=== PATIENT | male | born 1980 | race Caucasian/White ===

== ENCOUNTER 2023-11-27 11:34 | Inpatient (IN) | payer OTHER, BC ==
[2023-11-27 13:24] VITALS: BMI 26.2
[2023-11-27] MEDS ORDERED: MAGNESIUM HYDROX 2400MG/30ML ORAL SUSPENSION 30 ML CUP PO PRN (14:44)
[2023-11-27] MEDS ORDERED: IBUPROFEN 600 MG TABLET (FP) PO PRN (14:44)
[2023-11-27] MEDS ORDERED: LORazepam 1 MG TABLET PO PRN (14:44)
[2023-11-27] MEDS ORDERED: BISMUTH SUBSALICYLATE 524 MG/30 ML PO PRN (14:44)
[2023-11-27] MEDS ORDERED: IBUPROFEN 400 MG TABLET (FP) PO PRN (14:44)
[2023-11-27] MEDS ORDERED: LOPERAMIDE HCL 2 MG CAPSULE PO PRN (14:44)
[2023-11-27] MEDS ORDERED: DICYCLOMINE HCL 10 MG CAPSULE PO PRN (14:44)
[2023-11-27] MEDS ORDERED: BENZONATATE 200 MG CAPSULE PO PRN (14:44)
[2023-11-27] MEDS ORDERED: ACETAMINOPHEN 325 MG TABLET (FP) PO PRN (14:44)
[2023-11-27] MEDS ORDERED: POLYETHYLENE GLYCOL (HEALTHYLAX) 3350 17 GM PACKET PO PRN (14:44)
[2023-11-27] MEDS ORDERED: MAG HYDROX/AL HYDROX/SIMETH 30 ML UNIT-DOSE CUP PO PRN (14:44)
[2023-11-27] MEDS ORDERED: guaiFENesin 600 MG TABLET.ER (FP) PO PRN (14:44)
[2023-11-27] MEDS ORDERED: ONDANSETRON *ODT* 4 MG TABLET SL PRN (14:44)
[2023-11-27] MEDS ORDERED: BENZOCAINE/MENTHOL (CHLORASEPTIC ) LOZENGE MM PRN (14:44)
[2023-11-27] MEDS ORDERED: NALOXONE HCL 0.4 MG/ML VIAL IM PRN (14:44)
[2023-11-27] MEDS ORDERED: NALOXONE HCL (KLOXXADO) 8 MG SPRAY NS PRN (14:44)
[2023-11-27] MEDS: LISINOPRIL 20 MG TABLET PO SCH (16:35)
[2023-11-27] MEDS: PRENATAL VITAMINS W/ FOLIC ACID TABLET (FP) PO SCH (16:35)
[2023-11-27] MEDS: LORazepam 2 MG TABLET PO SCH (17:11)
[2023-11-27] MEDS: CHLORTHALIDONE 25 MG TABLET PO SCH ×2 (18:30→20:01)
[2023-11-27] MEDS ORDERED: SUVOREXANT 5 MG TABLET PO PRN (20:00)
[2023-11-27] MEDS: THIAMINE HCL 100 MG TABLET (FP) PO SCH (22:48)
[2023-11-27] MEDS: MELATONIN 5 MG TABLETS PO SCH (22:48)
[2023-11-27] MEDS: METHOCARBAMOL 500 MG TABLET PO PRN (22:48)
[2023-11-28] MEDS: DULoxetine HCL 30 MG CAPSULE.DR PO SCH (10:15)
[2023-11-28 12:01] LABS: HEMATOCRIT 46.8 % (35.4-49); HEMOGLOBIN 15.7 GM/dL (11.7-16.9); MCHC 33.6 g/dl (32.0-35.9); MEAN CELL VOLUME 86.2 fl (80-96); PLATELET COUNT 250 10^3/uL (134-434); RBC 5.43 M/mm3 (4.00-5.60); RDW 13.7 % (11.9-15.9); WHITE BLOOD COUNT 7.8 K/mm3 (4.0-10.0)
[2023-11-28 12:15] LABS: POTASSIUM 4.3 mmol/L (3.5-5.1)
[2023-11-28 12:32] LABS: ALBUMIN 4.3 g/dl (3.4-5.0); CALCIUM 9.8 mg/dL (8.5-10.1)
[2023-11-28 12:33] LABS: BLOOD UREA NITROGEN 12.8 mg/dL (7-18)
[2023-11-28 12:35] LABS: CREATININE 0.9 mg/dL (0.55-1.3)
[2023-11-28 12:37] LABS: BILIRUBIN,TOTAL 0.6 mg/dL (0.2-1); TOT PROT 7.8 g/dl (6.4-8.2)
[2023-11-29] MEDS: LORazepam 1 MG TABLET PO SCH (05:35)
[2023-11-30] MEDS ORDERED: LORazepam 0.5 MG TABLET PO PRN
[2023-11-30] MEDS: LORazepam 0.5 MG TABLET PO SCH (05:11)
[2023-11-30 13:07] VITALS: RESP 16
[2023-11-30] MEDS: hydrOXYzine PAMOATE 25 MG CAPSULE (FP) PO PRN (13:55)
[2023-12-01] MEDS: LORazepam 0.5 MG TABLET PO ONE (05:29)
[2023-12-01 09:49] VITALS: BP 115/77; PULSE 92; TEMP 97.1
== END 2023-12-01 09:45 | disposition home or self-care (01) | DRG 776 ==
LOC: YASAS 11:34 → Y6N 15:06
PROVIDERS: ADMIT Allergy & Immunology; ATTEND Surgery
PROC: HZ2ZZZZ Detoxification Services for Substance Abuse Treatment (ICD-10-PCS; principal; 2023-11-27)
DX: F13.230 Sedative, hypnotic or anxiolytic dependence with withdrawal, uncomplicated (principal); F19.282 Other psychoactive substance dependence with psychoactive substance-induced sleep disorder; F19.280 Other psychoactive substance dependence with psychoactive substance-induced anxiety disorder; F41.8 Other specified anxiety disorders; F19.24 Other psychoactive substance dependence with psychoactive substance-induced mood disorder; I10 Essential (primary) hypertension; Z87.891 Personal history of nicotine dependence
CPT/HCPCS: 36415; 80053; 85027; 86780; 93005; 93010